=== PATIENT | female | born 1965 | race Two or more races ===

== ENCOUNTER 2019-10-11 13:54 | Emergency (ER) | payer OTHER ==
[~2019-10-11] VITALS: Ht 162.6 cm; Wt 90.7 kg
[2019-10-11 14:51] VITALS: BP 152/80
[2019-10-11] MEDS ORDERED: ACETAMINOPHEN 325 MG TAB PO ONE (15:45)
== END 2019-10-11 15:56 | disposition home or self-care (01) ==
LOC: ER 13:54
DX: R51 Headache (principal); R42 Dizziness and giddiness; E11.9 Type 2 diabetes mellitus without complications; I10 Essential (primary) hypertension
CPT/HCPCS: 70450